=== PATIENT | male | born 1975 | race Caucasian/White ===

== ENCOUNTER 2021-04-27 08:32 | Emergency (ER) | payer OTHER, SELFPAY ==
[2021-04-27 09:18] VITALS: BP 157/103; PULSE 97; RESP 18; TEMP 36.7; O2SAT 98; BMI 36.6
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
[2021-04-27 10:28] LABS: Add Manual Diff / Slide Review NO; Basophils Absolute Auto 100 /uL (0-100); Basophils Percent Auto 0.9 % (0-2); Eosinophils Absolute Auto 200 /uL (0-450); Eosinophils Percent Auto 2.2 % (2-4); Hematocrit 41.2 % (41-53); Hemoglobin 14.1 g/dL (13.5-17.5); Lymphocytes Absolute Auto 2800 /uL (1100-4500); Lymphocytes Percent Auto 26.8 % (25-40); Mean Corpuscular HGB Conc 34.3 % (30-36); Mean Corpuscular Hemoglobin 29.8 PG (26-34); Mean Corpuscular Volume 87.1 fL (80-100); Monocytes Absolute Auto 1200 /uL (0-900); Monocytes Percent Auto 11.6 % (3-14); Neutrophils Absolute Auto 6100 /uL (1500-7000); Neutrophils Percent Auto 58.5 % (50-75); Platelet Count 323 X10^3/uL (150-400); Red Blood Cell Count 4.73 X10^6/uL (4.5-5.9); Red Cell Distribution Width 14.3 % (11.6-14.8); White Blood Cell Count 10.4 X10^3/uL (4.5-11.0)
[2021-04-27 10:31] LABS: INR 0.9 (0.9-1.3)
[2021-04-27 10:33] LABS: PTT Partial Thromboplastin Tim 31 SECONDS (26.4-36.2)
[2021-04-27 10:35] LABS: Alanine Aminotransferase 26 IU/L (<50); Albumin 4.4 g/dL (3.5-5.0); Albumin Globulin Ratio 1.4 (1.0-2.8); Alkaline Phosphatase 73 U/L (38-126); Aspartate Aminotransferase 25 IU/L (17-59); BUN Creatinine Ratio 18.3 (6-22); Bilirubin Total 0.3 mg/dL (0.2-1.3); Blood Urea Nitrogen 15 mg/dL (9-20); Calcium 9.4 mg/dL (8.4-10.2); Carbon Dioxide 29 mmol/L (22-32); Chloride 104 mmol/L (98-107); Estimated Glomerular Filt Rate > 60.0 mL/min (>60); Ethanol (ETOH) < 10 mg/dL; Globulin 3.1 g/dL (1.7-4.1); Glucose 127 mg/dL (70-100); HEMOLYSIS < 15 (0-50); Lipase 355 U/L (23-300); Potassium 4.1 mmol/L (3.4-5.1); Sodium 139 mmol/L (137-145); Total Protein 7.5 g/dL (6.3-8.2)
[2021-04-27 10:38] LABS: COVID19 -Nasal RAPID POSITIVE (Negative)
[2021-04-27] MEDS: ONDANSETRON 4 MG/2 ML INJ IV (11:19)
[2021-04-27] MEDS: NICOTINE 21 MG PATCH TOP (11:29)
[2021-04-27] MEDS: fentaNYL 100 MCG/2 ML INJ 50 MCG IV (11:41)
== END 2021-04-27 11:34 | disposition short-term general hospital (02) ==
PROVIDERS: Emergency Provider Emergency Medicine
DX: S02.0XXA Fracture of vault of skull, initial encounter for closed fracture (principal); S06.4X9A Epidural hemorrhage with loss of consciousness of unspecified duration, initial encounter; F17.200 Nicotine dependence, unspecified, uncomplicated; Y08.89XA Assault by other specified means, initial encounter; Y92.009 Unspecified place in unspecified non-institutional (private) residence as the place of occurrence of the external cause; Z20.822 Contact with and (suspected) exposure to COVID-19
CPT/HCPCS: 36415; 70450; 80053; 80320; 83690; 85025; 85610; 85730; 86850; 86900; 86901; 87635; 93005; 93010; 96374; 96375; 99285; 99291; C9803; J2405; J3010

== ENCOUNTER 2021-12-21 22:42 | Emergency (ER) | payer OTHER, SELFPAY ==
[2021-12-21 22:49] VITALS: BP 190/98; PULSE 79; RESP 20; TEMP 36.9; O2SAT 100
--- NOTE | 2021-12-21 22:55 | DI.RAD.S_ITS ---
PROCEDURE: XR HAND LT MIN 3V INDICATIONS: crush injury TECHNIQUE: 3 views of the hand(s) acquired. COMPARISON: None. FINDINGS: Bones: There is a mildly comminuted fracture involving the 5th metacarpal neck. A minimally displaced fracture is also demonstrated within the 4th metacarpal neck. No dislocations. Carpal bones are normally aligned. No suspicious bony lesions. Soft tissues: No suspicious soft tissue calcifications. IMPRESSION: 1. Mildly comminuted fracture of the distal 5th metacarpal as well as minimal displaced fracture of the distal 4th metacarpal. Dictated by: Yves Hayes M.D. on 12/22/2021 at 0:04 Approved by: Yves Hayes M.D. on 12/22/2021 at 0:06
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
--- NOTE | 2021-12-22 05:11 | PC.NURSE ---
Patients left hand splinted, he tolerated it well. Strongly encouraged elevation and ice at home
[2021-12-22 05:12] VITALS: BP 142/74; PULSE 75; RESP 16; O2SAT 98
== END 2021-12-22 05:32 | disposition home or self-care (01) ==
PROVIDERS: Emergency Provider Emergency Medicine
DX: S62.305A Unspecified fracture of fourth metacarpal bone, left hand, initial encounter for closed fracture (principal); S62.307A Unspecified fracture of fifth metacarpal bone, left hand, initial encounter for closed fracture; W23.0XXA Caught, crushed, jammed, or pinched between moving objects, initial encounter
CPT/HCPCS: 73130; 99281; 99283

== ENCOUNTER 2023-01-29 02:11 | Observation (INO) | payer OTHER, MEDICAID, SELFPAY ==
[2023-01-29] VITALS (18 sets, daily range): BP systolic 132–164; BP diastolic 78–113; PULSE 103–116; RESP 12–25; TEMP 36.3–36.8; O2SAT 83–99; BMI 38.5
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
--- NOTE | 2023-01-29 02:30 | DI.RAD.S_ITS ---
PROCEDURE: XR CHEST 1V INDICATIONS: Dyspnea TECHNIQUE: One view of the chest was acquired. COMPARISON: None. FINDINGS: Surgical changes and devices: None. Lungs and pleura: Interstitial opacities throughout the bilateral lungs with prominent vascularity. No pleural effusions or pneumothorax. Mediastinum: Mediastinal contours appear normal. Heart size is enlarged. Bones and chest wall: No suspicious bony lesions. Overlying soft tissues appear unremarkable. Plate screw fixation left clavicle. IMPRESSION: Constellation of findings consistent with pulmonary edema, likely cardiac in origin. Interpretation is consistent with overnight read. Dictated by: Rajan Fernandez M.D. on 01/29/2023 at 7:57 Approved by: Rajan Fernandez M.D. on 01/29/2023 at 7:59
[2023-01-29 02:50] LABS: Add Manual Diff / Slide Review NO; Basophils Absolute Auto 100 /uL (0-100); Basophils Percent Auto 1.1 % (0-2); Eosinophils Absolute Auto 200 /uL (0-450); Eosinophils Percent Auto 2.1 % (2-4); Hematocrit 36.5 % (41-53); Hemoglobin 11.9 g/dL (13.5-17.5); Lymphocytes Absolute Auto 2600 /uL (1100-4500); Lymphocytes Percent Auto 22.1 % (25-40); Mean Corpuscular HGB Conc 32.5 % (30-36); Mean Corpuscular Hemoglobin 27.9 PG (26-34); Mean Corpuscular Volume 85.7 fL (80-100); Monocytes Absolute Auto 1300 /uL (0-900); Monocytes Percent Auto 10.9 % (3-14); Neutrophils Absolute Auto 7500 /uL (1500-7000); Neutrophils Percent Auto 63.8 % (50-75); Platelet Count 466 X10^3/uL (150-400); Red Blood Cell Count 4.26 X10^6/uL (4.5-5.9); Red Cell Distribution Width 15.3 % (11.6-14.8); White Blood Cell Count 11.7 X10^3/uL (4.5-11.0)
[2023-01-29 03:02] LABS: Alanine Aminotransferase 28 IU/L (<50); Albumin 3.5 g/dL (3.5-5.0); Albumin Globulin Ratio 1.3 (1.0-2.8); Alkaline Phosphatase 107 U/L (38-126); Aspartate Aminotransferase 35 IU/L (17-59); BUN Creatinine Ratio 18.9 (6-22); Bilirubin Total 0.6 mg/dL (0.2-1.3); Blood Urea Nitrogen 18 mg/dL (9-20); Calcium 8.7 mg/dL (8.4-10.2); Carbon Dioxide 26 mmol/L (22-32); Chloride 104 mmol/L (98-107); Creatine Kinase 234 U/L (55-170); Estimated Glomerular Filt Rate > 60 mL/min (>60); Ethanol (ETOH) < 10 mg/dL; Globulin 2.7 g/dL (1.7-4.1); Glucose 109 mg/dL (70-100); HEMOLYSIS < 15 (0-50); Lactate (Lactic Acid) 1.1 mmol/L (0.7-2.1); Lipase 89 U/L (23-300); Magnesium 1.8 mg/dL (1.6-2.3); Sodium 137 mmol/L (137-145); Total Protein 6.2 g/dL (6.3-8.2)
[2023-01-29 03:04] LABS: D Dimer 828 ng/ml (<500)
[2023-01-29 03:10] LABS: NT-proBNP (BNP-Adult 18+) 4140 pg/mL (<125)
[2023-01-29 03:13] LABS: Troponin I 0.035 ng/mL (0.01-0.034)
[2023-01-29 03:18] LABS: Procalcitonin 0.06 ng/mL (<0.5)
--- NOTE | 2023-01-29 03:32 | DI.CT.S_ITS ---
PROCEDURE: CT ANGIO CHEST PE PROTOCOL INDICATIONS: dyspnea, tachycardia, elvated d dimer TECHNIQUE: After the administration of intravenous contrast, 2 mm thick sections acquired from the pulmonary apices to the posterior costophrenic angles. 3-dimensional maximum intensity projection (MIP) coronal and sagittal reformats were then acquired through the thorax. For radiation dose reduction, the following was used: automated exposure control, adjustment of mA and/or kV according to patient size. COMPARISON: None. FINDINGS: Image quality: Diagnostic. Pulmonary arteries: Pulmonary arteries are normal in size, and demonstrate no intraluminal filling defects to suggest central pulmonary embolism. Lungs and pleura: Patchy bilateral ground-glass opacities throughout the bilateral lungs. Interstitial thickening. Small right pleural effusion. No pneumothorax. Central and peripheral airways are patent. Mediastinum: Heart size is enlarged, without pericardial effusion. Right hilar and central lymphadenopathy. Prevascular space lymphadenopathy. Thoracic aorta is normal in caliber and enhancement. Esophagus is normal in caliber, without hiatal hernia. Bones and chest wall: No suspicious bony lesions. Ribs and thoracic spine appear intact throughout. No axillary or supraclavicular adenopathy. No thyroid nodules which require sonographic follow up, per consensus guidelines. Abdomen: Visualized upper abdominal solid organs appear normal in the early arterial phase of enhancement. IMPRESSION: 1. No pulmonary embolus. 2. Cardiomegaly with constellation of findings suggestive of heart failure and pulmonary edema. 3. Diffuse ground-glass opacities may be sequela of pulmonary edema however cannot exclude atypical infection given the lymphadenopathy Findings are congruent with overnight interpretation. Dictated by: Rajan Fernandez M.D. on 01/29/2023 at 7:59 Approved by: Rajan Fernandez M.D. on 01/29/2023 at 8:05
[2023-01-29] MEDS: FUROSEMIDE 40 MG/4 ML VIAL IV (03:41)
[2023-01-29 04:14] LABS: Thyroid Stimulating Hormone 4.97 uIU/mL (0.47-4.68)
[2023-01-29 04:28] LABS: Ur Creatinine Normal (Normal); Ur Specific Gravity Normal (Normal); Urine Amphetamines Positive (Negative); Urine Barbiturates Negative (Negative); Urine Benzodiazepines Negative (Negative); Urine MDMA Negative (Negative); Urine Methadone Positive (Negative); Urine Methamphetamines Negative (Negative); Urine Oxycodone Positive (Negative); Urine Phencyclidine Negative (Negative); Urine Tetrahydrocannabinol Positive (Negative); Urine Tricyclic Antidepressant Negative (Negative); Urine pH Normal (Normal)
[2023-01-29 04:29] LABS: UR Morphine/Opiate cutoff 300 Negative (Negative); Urine Cocaine Negative (Negative)
[2023-01-29 04:30] LABS: Bacteria Urine None Seen; Culture Indicated Urine Cult Not Indicated; RBC Urine None Seen (0-5/HPF); Squamous Epithelial Cell Urine None Seen (0-5/HPF); WBC Urine None Seen (0-5/HPF)
[2023-01-29 05:13] LABS: Troponin I 0.031 ng/mL (0.01-0.034)
[2023-01-29 05:41] LABS: Influenza A - CEPHEID Flu A NEGATIVE (NEGATIVE); Influenza B - CEPHEID Flu B NEGATIVE (NEGATIVE); Respiratory Syncytial Virus Negative (Negative)
[2023-01-29 05:42] LABS: COVID-19 CEPHEID 4-PLEX PCR Negative (Negative)
--- NOTE | 2023-01-29 05:55 | DI.ECHO.S_ITS ---
[facility] +---------+ : : [address] : : : : [id number] : : : : Phone: [phone]+ Echocardiogram Report + + :Name: KUN NARVAEZ V Study Date: 01/29/2023 Height: 74 in : :[facility] ReadingLocation: Weight: 300 lb : : Gender: Male BSA: 2.6 m2 : :: 1975 Age: 47 yrs BP: 134/83 mmHg: :Reason For Study: Congestive Heart Failure : : Performed By: Cris Singleton : + + Interpretation Summary Echo ordered by Camden Cox MD. The left ventricle is moderate-severely dilated. The ejection fraction is estimated to be 10-15%. Grade III diastolic dysfunction. Both atria are severely dilated. There is moderate to severe mitral regurgitation. There is moderate tricuspid regurgitation. The right ventricular systolic pressure is estimated to be at least 54 mmHg based on an estimated right atrial pressure of 15 mm Hg. There is a trivial pericardial effusion noted. Procedure: A two-dimensional transthoracic echocardiogram with color flow and Doppler was performed. The study quality was technically adequate. There is no prior echocardiogram noted for this patient. The heart rate ranged between 103-113 bpm during the study. Left Ventricle: The left ventricle is moderate-severely dilated. Left ventricular wall thickness is normal. The ejection fraction is estimated to be 10-15%. Diastolic parameters suggest a restrictive filling pattern consistent with probable significantly elevated filling pressures. Right Ventricle: The right ventricle is moderately dilated. Right ventricular systolic function is at the lower limits of normal. Atria: Both atria are severely dilated. There is no Doppler evidence for an interatrial shunt. Mitral Valve: The mitral valve leaflets appear mildly thickened, but open well. There is moderate to severe mitral regurgitation. The mitral regurgitant jet is eccentrically directed. Aortic Valve: The aortic valve is trileaflet. The aortic valve opens well. There is no aortic valve stenosis. No aortic regurgitation is present. Tricuspid Valve: The tricuspid valve leaflets are thin and pliable. There is moderate tricuspid regurgitation. The right ventricular systolic pressure is estimated to be at least 54 mmHg based on an estimated right atrial pressure of 15 mm Hg. Pulmonic Valve: The pulmonic valve leaflets are thin and pliable; valve motion is normal. There is trace pulmonic regurgitation. Great Vessels: The aortic root is normal size. The dimensions of the ascending aorta are normal. The IVC is dilated (diameter is greater than 2.1 cm) and it collapses less than 50% with a sniff. This suggests a high right atrial pressure of 15 mm Hg. Pericardium/ Pleura There is a trivial pericardial effusion noted. There is no pleural effusion. MMode/2D Measurements & Calculations LVIDd: 6.0 cm LVOT diam: 2.3 cm LVIDs: 5.5 cm Ao root diam: 3.5 cm FS: 8.5 % asc Aorta Diam: 3.5 cm EPSS: 2.3 cm IVSd: 0.99 cm LVPWd: 0.98 cm LV flor. diameter/BSA (cm/m^2): 2.3 LV sys. diameter/BSA (cm/m^2): 2.1 LA A2 area: 35.9 cm2 RA long axis: 6.8 cm LA A4 area: 40.7 cm2 RA area: 33.5 cm2 LA length (vol): 7.1 cm RA vol: 140.4 ml LA vol: 173.6 ml RA : 54.4 ml/m2 LA vol index: 67.3 ml/m2 IVC diam: 3.3 cm RVD1 (basal): 5.2 cm TAPSE: 1.8 cm Doppler Measurements & Calculations Ao V2 max: 121.3 cm/sec LVOT Max Alessandro: 90.7 cm/sec Ao V2 mean: 91.1 cm/sec LV V1 max P.3 mmHg Ao max P.9 mmHg LV V1 VTI: 13.5 cm Ao mean P.6 mmHg MARITA(I,D): 3.4 cm2 Ao V2 VTI: 16.7 cm MARITA(V,D): 3.1 cm2 sev ratio: 0.81 MARITA indexed to BSA (cm^2/m^2): 1.3 MV E max alessandro: 168.7 cm/sec TR max alessandro: 314.2 cm/sec Med Peak E' Alessandro: 6.2 cm/sec TR max P.5 mmHg E/E' med: 27.4 PA V2 max: 72.7 cm/sec Lat Peak E' Alessandro: 3.6 cm/sec PA V2 mean: 50.3 cm/sec E/E' lat: 46.4 PA mean P.1 mmHg E/e' average: 36.9 PA pr(Accel): 43.0 mmHg MV dec time: 0.10 sec MR ERO: 0.40 cm2 PISA: 5.3 cm2 SV(LVOT): 56.2 ml MR flow rate: 185.7 cm3/sec MR PISA radius: 0.92 cm Reading Physician:10:46 AM
[2023-01-29 06:33] LABS: Add Manual Diff / Slide Review NO; Basophils Absolute Auto 100 /uL (0-100); Basophils Percent Auto 1.3 % (0-2); Eosinophils Absolute Auto 300 /uL (0-450); Eosinophils Percent Auto 2.8 % (2-4); Hematocrit 36.3 % (41-53); Lymphocytes Absolute Auto 2100 /uL (1100-4500); Lymphocytes Percent Auto 19.9 % (25-40); Mean Corpuscular HGB Conc 33.2 % (30-36); Mean Corpuscular Hemoglobin 28.2 PG (26-34); Mean Corpuscular Volume 85.1 fL (80-100); Monocytes Absolute Auto 1300 /uL (0-900); Monocytes Percent Auto 12.3 % (3-14); Neutrophils Absolute Auto 6800 /uL (1500-7000); Neutrophils Percent Auto 63.7 % (50-75); Platelet Count 450 X10^3/uL (150-400); Red Blood Cell Count 4.26 X10^6/uL (4.5-5.9); Red Cell Distribution Width 14.8 % (11.6-14.8); White Blood Cell Count 10.6 X10^3/uL (4.5-11.0)
--- NOTE | 2023-01-29 06:39 | PC.NURSE ---
Patient's sister (Radha) called and updated that patient is admitted to hospital and moved to Acute care Unit, Room 216. Radha has no further questions at this time and states she will come later today to check on patient or call hospital to get update. Radha can be reached at #[phone].
[2023-01-29 06:45] LABS: BUN Creatinine Ratio 18.8 (6-22); Blood Urea Nitrogen 18 mg/dL (9-20); Calcium 8.9 mg/dL (8.4-10.2); Carbon Dioxide 30 mmol/L (22-32); Chloride 101 mmol/L (98-107); Estimated Glomerular Filt Rate > 60 mL/min (>60); Glucose 105 mg/dL (70-100); HEMOLYSIS < 15 (0-50); Potassium 3.8 mmol/L (3.4-5.1); Sodium 137 mmol/L (137-145)
[2023-01-29 06:54] LABS: NT-proBNP (BNP-Adult 18+) 3830 pg/mL (<125)
[2023-01-29 07:07] LABS: Cholesterol 164 mg/dL (140-199); HDL Cholesterol 32 mg/dL (40-60); LDL Cholesterol Calculated 110 mg/dL (<100); Triglycerides 108 mg/dL (35-150)
--- NOTE | 2023-01-29 07:07 | PM.HP.1 ---
History of Present Illness History of Present Illness Date Patient Seen: 01/29/23 Time Patient Seen: 07:17 Chief complaint: swelling up both legs/high bp/sob Narrative: The pt is a 47 yo who rarely goes to see a medical provider who reports he has VIN but never has been fitted for a CPAP and has had edema in his legs for the past several years but never has sought medical attention either. He comes to the ER tonight due to worsening SOB and dypnea that has been steadily worsening over the past 2 weeks. He denies any CP, chest pressure, recent travel or immobility. 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 [facility] Social History Smoking Status: Current every day smoker Meds Home Medications and Allergies Home Medications Medication Instructions Recorded Confirmed Type hydrocodone 5 mg-acetaminophen 325 1 tab PO Q6H PRN pain #8 tabs 12/22/21 Rx mg tablet Allergies Allergy/AdvReac Type Severity Reaction Status Date / Time No Known Drug Allergies Allergy Verified 04/27/21 09:21 Exam Vital Signs (past 8 hours): - 01/29/23 02:13 01/29/23 02:54 01/29/23 02:56 Temperature 98.1 F Pulse Rate 110 H Respiratory Rate 25 H 14 16 Blood Pressure 164/113 H Pulse Oximetry 91 83 L 96 Oxygen Delivery Method Room Air Room Air Nasal Cannula Oxygen Flow Rate 3 01/29/23 03:48 01/29/23 04:54 01/29/23 04:55 Temperature Pulse Rate 108 H Respiratory Rate 16 18 24 Blood Pressure Pulse Oximetry 99 93 99 Oxygen Delivery Method Nasal Cannula Nasal Cannula Oxygen Flow Rate 2 3 01/29/23 05:00 01/29/23 05:00 01/29/23 05:30 Temperature Pulse Rate 107 H Respiratory Rate 13 Blood Pressure 143/94 H 145/89 H Pulse Oximetry 99 Oxygen Delivery Method Oxygen Flow Rate 01/29/23 05:30 01/29/23 06:00 01/29/23 06:00 Temperature Pulse Rate 103 H 106 H Respiratory Rate 12 14 Blood Pressure 144/92 H Pulse Oximetry 96 99 Oxygen Delivery Method Nasal Cannula Nasal Cannula Oxygen Flow Rate 3 3 01/29/23 06:35 Temperature 97.5 F L Pulse Rate 104 H Respiratory Rate 14 Blood Pressure 134/83 Pulse Oximetry 98 Oxygen Delivery Method Oxygen Flow Rate 3 Oxygen Delivery Method Nasal Cannula Oxygen Flow Rate 3 Const General: cooperative and comfortable Resp Auscultation: clear to auscultation bilaterally Cardio Rate: regular rate Rhythm: regular rhythm GI Inspection: normal to inspection and obesity Objective Labs 01/29/23 06:25 01/29/23 06:25 Labs: Laboratory Results - last 24 hr 01/29/23 01/29/23 01/29/23 02:30 04:05 04:29 WBC 11.7 H RBC 4.26 L Hgb 11.9 L Hct 36.5 L MCV 85.7 MCH 27.9 MCHC 32.5 RDW 15.3 H Plt Count 466 H Neut % (Auto) 63.8 Lymph % (Auto) 22.1 L [place] % (Auto) 10.9 Eos % (Auto) 2.1 Baso % (Auto) 1.1 Neut # (Auto) 7500 H Lymph # (Auto) 2600 [place] # (Auto) 1300 H Eos # (Auto) 200 Baso # (Auto) 100 D-Dimer 828 H Sodium 137 Potassium 4.0 Chloride 104 Carbon Dioxide 26 BUN 18 Creatinine 0.95 Estimated GFR > 60 BUN/Creatinine Ratio 18.9 Glucose 109 H Lactate 1.1 Calcium 8.7 Magnesium 1.8 Total Bilirubin 0.6 AST 35 ALT 28 Alkaline Phosphatase 107 Total Creatine Kinase 234 H Troponin I 0.035 H 0.031 NT-Pro-B Natriuret Pep 4140 H Total Protein 6.2 L Albumin 3.5 Globulin 2.7 Albumin/Globulin Ratio 1.3 Lipase 89 Procalcitonin 0.06 TSH 4.97 H Urine RBC None seen Urine WBC None seen Ur Squamous Epith Cells None seen Urine Bacteria None seen Ur Culture Indicated? Cult not indicated U Opiates 300ng/mL cut Negative Ur Oxycodone Screen Positive H Urine Methadone Screen Positive H Ur Barbiturates Screen Negative U Tricyclic Antidepress Negative Ur Phencyclidine Scrn Negative Ur Amphetamines Screen Positive H U Methamphetamines Scrn Negative Ur MDMA Scrn (Ecstasy) Negative U Benzodiazepines Scrn Negative Urine Cocaine Screen Negative U Marijuana (THC) Screen Positive H Ethyl Alcohol < 10 SARS-CoV-2 (PCR) Influenza A (RT-PCR) Influenza B (RT-PCR) RSV (PCR) 01/29/23 01/29/23 04:35 06:25 WBC 10.6 RBC 4.26 L Hgb 12.0 L Hct 36.3 L MCV 85.1 MCH 28.2 MCHC 33.2 RDW 14.8 Plt Count 450 H Neut % (Auto) 63.7 Lymph % (Auto) 19.9 L [place] % (Auto) 12.3 Eos % (Auto) 2.8 Baso % (Auto) 1.3 Neut # (Auto) 6800 Lymph # (Auto) 2100 [place] # (Auto) 1300 H Eos # (Auto) 300 Baso # (Auto) 100 D-Dimer Sodium 137 Potassium 3.8 Chloride 101 Carbon Dioxide 30 BUN 18 Creatinine 0.96 Estimated GFR > 60 BUN/Creatinine Ratio 18.8 Glucose 105 H Lactate Calcium 8.9 Magnesium Total Bilirubin AST ALT Alkaline Phosphatase Total Creatine Kinase Troponin I NT-Pro-B Natriuret Pep 3830 H Total Protein Albumin Globulin Albumin/Globulin Ratio Lipase Procalcitonin TSH Urine RBC Urine WBC Ur Squamous Epith Cells Urine Bacteria Ur Culture Indicated? U Opiates 300ng/mL cut Ur Oxycodone Screen Urine Methadone Screen Ur Barbiturates Screen U Tricyclic Antidepress Ur Phencyclidine Scrn Ur Amphetamines Screen U Methamphetamines Scrn Ur MDMA Scrn (Ecstasy) U Benzodiazepines Scrn Urine Cocaine Screen U Marijuana (THC) Screen Ethyl Alcohol SARS-CoV-2 (PCR) Negative Influenza A (RT-PCR) Flu a negative Influenza B (RT-PCR) Flu b negative RSV (PCR) Negative Assessment & Plan Assessment and plan (1) Acute CHF (congestive heart failure): Qualifiers: Heart failure type: unspecified Qualified Code(s): I50.9 - Heart failure, unspecified Status: Acute (2) Apnea, sleep: Qualifiers: Sleep apnea type: unspecified type Qualified Code(s): G47.30 - Sleep apnea, unspecified Status: Acute (3) Anemia, mild: Status: Acute Plan I discussed the pt's case and presenting symptoms and labs with the ER provider and agree with admission. I have reviewed the CT scan and labs, BNP is elevated and clinically he appears fluid overload. Will start the pt on lasix 40 mg iV q8, spironolactone, monitor I/O's closely, daily weights, on 2 gm Na diet with fluid restriction, on cardiac telemetry, troponin minimally elevated, repeat troponin at non today, asymptomatic.
--- NOTE | 2023-01-29 07:35 | P.HP_ITS ---
History of Present Illness History of Present Illness Date Patient Seen: 01/29/23 Time Patient Seen: 07:17 Chief complaint: swelling up both legs/high bp/sob Narrative: The pt is a 47 yo who rarely goes to see a medical provider who reports he has VIN but never has been fitted for a CPAP and has had edema in his legs for the past several years but never has sought medical attention either. He comes to the ER tonight due to worsening SOB and dypnea that has been steadily worsening over the past 2 weeks. He denies any CP, chest pressure, recent travel or immobility. He states he works out in the [employer] but wont say what he really does for a living. [facility] Social History Smoking Status: Current every day smoker alcohol intake: never Meds Home Medications and Allergies Allergies Allergy/AdvReac Type Severity Reaction Status Date / Time No Known Drug Allergies Allergy Verified 04/27/21 09:21 Review of Systems Review of Systems Narrative: All other systems reviewed with the patient and are negative unless otherwise stated. Exam Vital Signs (past 8 hours): - 01/29/23 02:13 01/29/23 02:54 01/29/23 02:56 Temperature 98.1 F Pulse Rate 110 H Respiratory Rate 25 H 14 16 Blood Pressure 164/113 H Pulse Oximetry 91 83 L 96 Oxygen Delivery Method Room Air Room Air Nasal Cannula Oxygen Flow Rate 3 01/29/23 03:48 01/29/23 04:54 01/29/23 04:55 Temperature Pulse Rate 108 H Respiratory Rate 16 18 24 Blood Pressure Pulse Oximetry 99 93 99 Oxygen Delivery Method Nasal Cannula Nasal Cannula Oxygen Flow Rate 2 3 01/29/23 05:00 01/29/23 05:00 01/29/23 05:30 Temperature Pulse Rate 107 H Respiratory Rate 13 Blood Pressure 143/94 H 145/89 H Pulse Oximetry 99 Oxygen Delivery Method Oxygen Flow Rate 01/29/23 05:30 01/29/23 06:00 01/29/23 06:00 Temperature Pulse Rate 103 H 106 H Respiratory Rate 12 14 Blood Pressure 144/92 H Pulse Oximetry 96 99 Oxygen Delivery Method Nasal Cannula Nasal Cannula Oxygen Flow Rate 3 3 01/29/23 06:35 Temperature 97.5 F L Pulse Rate 104 H Respiratory Rate 14 Blood Pressure 134/83 Pulse Oximetry 98 Oxygen Delivery Method Oxygen Flow Rate 3 Oxygen Delivery Method Nasal Cannula Oxygen Flow Rate 3 Const General: cooperative and comfortable Resp Auscultation: clear to auscultation bilaterally Cardio Rate: regular rate Rhythm: regular rhythm GI Inspection: normal to inspection and obesity Objective Labs 01/29/23 06:25 01/29/23 06:25 Labs: Laboratory Results - last 24 hr 01/29/23 01/29/23 01/29/23 02:30 04:05 04:29 WBC 11.7 H RBC 4.26 L Hgb 11.9 L Hct 36.5 L MCV 85.7 MCH 27.9 MCHC 32.5 RDW 15.3 H Plt Count 466 H Neut % (Auto) 63.8 Lymph % (Auto) 22.1 L [place] % (Auto) 10.9 Eos % (Auto) 2.1 Baso % (Auto) 1.1 Neut # (Auto) 7500 H Lymph # (Auto) 2600 [place] # (Auto) 1300 H Eos # (Auto) 200 Baso # (Auto) 100 D-Dimer 828 H Sodium 137 Potassium 4.0 Chloride 104 Carbon Dioxide 26 BUN 18 Creatinine 0.95 Estimated GFR > 60 BUN/Creatinine Ratio 18.9 Glucose 109 H Lactate 1.1 Calcium 8.7 Magnesium 1.8 Total Bilirubin 0.6 AST 35 ALT 28 Alkaline Phosphatase 107 Total Creatine Kinase 234 H Troponin I 0.035 H 0.031 NT-Pro-B Natriuret Pep 4140 H Total Protein 6.2 L Albumin 3.5 Globulin 2.7 Albumin/Globulin Ratio 1.3 Triglycerides Cholesterol LDL Cholesterol, Calc HDL Cholesterol Lipase 89 Procalcitonin 0.06 TSH 4.97 H Urine RBC None seen Urine WBC None seen Ur Squamous Epith Cells None seen Urine Bacteria None seen Ur Culture Indicated? Cult not indicated U Opiates 300ng/mL cut Negative Ur Oxycodone Screen Positive H Urine Methadone Screen Positive H Ur Barbiturates Screen Negative U Tricyclic Antidepress Negative Ur Phencyclidine Scrn Negative Ur Amphetamines Screen Positive H U Methamphetamines Scrn Negative Ur MDMA Scrn (Ecstasy) Negative U Benzodiazepines Scrn Negative Urine Cocaine Screen Negative U Marijuana (THC) Screen Positive H Ethyl Alcohol < 10 SARS-CoV-2 (PCR) Influenza A (RT-PCR) Influenza B (RT-PCR) RSV (PCR) 11/19/23 11/19/23 04:35 06:25 WBC 10.6 RBC 4.26 L Hgb 12.0 L Hct 36.3 L MCV 85.1 MCH 28.2 MCHC 33.2 RDW 14.8 Plt Count 450 H Neut % (Auto) 63.7 Lymph % (Auto) 19.9 L [place] % (Auto) 12.3 Eos % (Auto) 2.8 Baso % (Auto) 1.3 Neut # (Auto) 6800 Lymph # (Auto) 2100 [place] # (Auto) 1300 H Eos # (Auto) 300 Baso # (Auto) 100 D-Dimer Sodium 137 Potassium 3.8 Chloride 101 Carbon Dioxide 30 BUN 18 Creatinine 0.96 Estimated GFR > 60 BUN/Creatinine Ratio 18.8 Glucose 105 H Lactate Calcium 8.9 Magnesium Total Bilirubin AST ALT Alkaline Phosphatase Total Creatine Kinase Troponin I NT-Pro-B Natriuret Pep 3830 H Total Protein Albumin Globulin Albumin/Globulin Ratio Triglycerides 108 Cholesterol 164 LDL Cholesterol, Calc 110 H HDL Cholesterol 32 L Lipase Procalcitonin TSH Urine RBC Urine WBC Ur Squamous Epith Cells Urine Bacteria Ur Culture Indicated? U Opiates 300ng/mL cut Ur Oxycodone Screen Urine Methadone Screen Ur Barbiturates Screen U Tricyclic Antidepress Ur Phencyclidine Scrn Ur Amphetamines Screen U Methamphetamines Scrn Ur MDMA Scrn (Ecstasy) U Benzodiazepines Scrn Urine Cocaine Screen U Marijuana (THC) Screen Ethyl Alcohol SARS-CoV-2 (PCR) Negative Influenza A (RT-PCR) Flu a negative Influenza B (RT-PCR) Flu b negative RSV (PCR) Negative Assessment & Plan Assessment and plan (1) Acute CHF (congestive heart failure): Qualifiers: Heart failure type: unspecified Qualified Code(s): I50.9 - Heart failure, unspecified Status: Acute Plan: echo with EF 10-15%, mod-severely dilated LV, grade III diastolic dysfunction, mod-severe MR, mod TR, RVSP 54 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
[2023-01-29] MEDS: SPIRONOLACTONE 25 MG TABLET PO (09:20)
[2023-01-29] MEDS: POTASSIUM CHLORIDE 20 MEQ TAB PO ×2 (09:20→17:11)
[2023-01-29] MEDS: ENOXAPARIN 40 MG/0.4 ML SYRINGE SUBCUT (09:21)
[2023-01-29] MEDS: NICOTINE 14 PATCH 14 MG TOP (09:22)
--- NOTE | 2023-01-29 11:56 | CM.DANOTE ---
DCP: Case received, EMR reviewed and met with patient. Introduced self and role briefly. Completed DCP assessment based upon information currently available. Patient is a 47 year old male who admitted early this morning to the care of the hospitalist team. PCP: No current provider Payer: currently uninsured, [employer] Application given to patient. Patent came to the hospital via private vehicle secondary to having dyspnea. Patient had noted some tachycardia upon admission. Patient noted to be positive for Methamphetamines, denies recreational drugs, stated, he takes Sudafed. Patient holds diagnosis of Acute CHF. Attempted to meet with patient. He was sitting up in bed, started to fall asleep when asking questions, he is from [place], unable to find out if he lives in this area, no provider is listed, notes indicate that patient rarely sees a provider. It is also noted that patient was given a [employer] application, unclear if he qualifies for [employer], would have to send email to change group. Patient did state, he wants to leave. P: DCP to continue to follow for needs. Plan will most likely be home when stable. Arabella Bojorquez RN/Furrier Shop Supervisor Discharge Planning/Care Management CM Discharge Assessment Start: 01/29/23 11:43 Freq: Status: Active Protocol: Document 01/29/23 11:43 (Rec: 01/29/23 11:48 [id number]) Discharge Planning Assessment Assigned Extermination Supervisor Arabella Bojorquez RN/Furrier Shop Supervisor Advance Directives? No History Provided By Patient,Medical Record Prior Living Arrangements House Type of transporation used prior to Drives own vehicle admit Independent with ADL's Yes Is patient alert and oriented? Yes Caregiver for Another No Barriers to Discharge Yes Comment Has no provider, or insurance Discharge Plan Home Transportation Arrangement Self Referrals Initiated None needed Whiteboard Updated in Patient Room with Yes name and ext. # of Extermination Supervisor Review Status In Process Next Review Type Continued Stay Review
--- NOTE | 2023-01-29 12:22 | PC.NURSE ---
Addendum entered by Palmira Angel R.N. 01/29/23 16:05: Patient is tolerating his continuous lasix drip. He is resting comfortably and denies pain. Addendum entered by Palmira Angel R.N. 01/29/23 14:15: Patient put on 2l of oxygen as he desats when he falls asleep down into the mid 80s. When he is awake and conversing, patients sats are 97% Addendum entered by Palmira Angel R.N. 01/29/23 12:54: talked to patient and he is willing to stay for his iv lasix, patient is in the shower now. This will then get started. Original Note: Notes: Went to see patient and get ready to start his iv lasix and he states that he does not want anything iv medication and he wants to go home. Explained to patient that we cannot force him to stay here but also that he is sick and his heart is not doing well. is in talking to patient now. He took his morning medications without any problem. He told this RN that he was just mad at everthing right now. He has been pleasant with care.
[2023-01-29] MEDS: LOSARTAN 25 MG TABLET PO (12:33)
[2023-01-29] MEDS: FUROSEMIDE 100 MG in SODIUM CHLORIDE 0.9% 50 ML 6 MG IV (13:30)
[2023-01-29 16:17] LABS: BUN Creatinine Ratio 21.7 (6-22); Blood Urea Nitrogen 18 mg/dL (9-20); Calcium 8.9 mg/dL (8.4-10.2); Carbon Dioxide 30 mmol/L (22-32); Chloride 104 mmol/L (98-107); Estimated Glomerular Filt Rate > 60 mL/min (>60); Glucose 104 mg/dL (70-100); HEMOLYSIS < 15 (0-50); Potassium 3.9 mmol/L (3.4-5.1); Sodium 138 mmol/L (137-145)
[2023-01-29 16:29] LABS: Troponin I 0.027 ng/mL (0.01-0.034)
[2023-01-29] MEDS: SENNOSIDES 8.6 MG TABLET 17.2 MG PO (20:57)
[2023-01-30] VITALS (11 sets, daily range): BP systolic 103–134; BP diastolic 56–89; PULSE 81–107; RESP 17–18; TEMP 36.6–36.9; O2SAT 91–98
[2023-01-30] MEDS: HYDROCODONE/ACET 5/325 TABLET 1 TAB PO ×3 (00:19→20:26)
[2023-01-30] MEDS: ACETAMINOPHEN 325 MG TABLET 650 MG PO ×2 (00:19→12:08)
[2023-01-30 05:32] LABS: Add Manual Diff / Slide Review NO; Basophils Absolute Auto 0 /uL (0-100); Basophils Percent Auto 0.4 % (0-2); Eosinophils Absolute Auto 300 /uL (0-450); Eosinophils Percent Auto 2.7 % (2-4); Hematocrit 38.6 % (41-53); Hemoglobin 12.5 g/dL (13.5-17.5); Lymphocytes Absolute Auto 2000 /uL (1100-4500); Mean Corpuscular HGB Conc 32.3 % (30-36); Mean Corpuscular Hemoglobin 27.5 PG (26-34); Mean Corpuscular Volume 85.3 fL (80-100); Monocytes Absolute Auto 1200 /uL (0-900); Monocytes Percent Auto 11.4 % (3-14); Neutrophils Absolute Auto 7200 /uL (1500-7000); Neutrophils Percent Auto 66.5 % (50-75); Platelet Count 457 X10^3/uL (150-400); Red Blood Cell Count 4.53 X10^6/uL (4.5-5.9); Red Cell Distribution Width 14.8 % (11.6-14.8); White Blood Cell Count 10.8 X10^3/uL (4.5-11.0)
[2023-01-30 05:39] LABS: BUN Creatinine Ratio 19.3 (6-22); Blood Urea Nitrogen 17 mg/dL (9-20); Calcium 8.9 mg/dL (8.4-10.2); Carbon Dioxide 33 mmol/L (22-32); Chloride 99 mmol/L (98-107); Estimated Glomerular Filt Rate > 60 mL/min (>60); Glucose 99 mg/dL (70-100); HEMOLYSIS 18 (0-50); Potassium 3.9 mmol/L (3.4-5.1); Sodium 136 mmol/L (137-145)
[2023-01-30] MEDS: FUROSEMIDE 100 MG in SODIUM CHLORIDE 0.9% 50 ML 6 MG IV (06:25)
--- NOTE | 2023-01-30 07:22 | PM.PN.1 ---
Subjective Subjective Interval history: Diuresing well net neg -11L. [facility] rep to meet with him today. Exam Vital Signs (past 8 hours): - 01/30/23 00:31 01/30/23 01:00 01/30/23 05:00 Temperature 97.8 F Pulse Rate 98 H Respiratory Rate 17 Blood Pressure 108/66 Pulse Oximetry 94 94 98 Oxygen Delivery Method Room Air Room Air Oxygen Flow Rate 0 0 01/30/23 05:23 Temperature Pulse Rate 94 H Respiratory Rate 18 Blood Pressure 103/56 L Pulse Oximetry 98 Oxygen Delivery Method Oxygen Flow Rate Oxygen Delivery Method Room Air Oxygen Flow Rate 0 Const General: cooperative and comfortable Resp Auscultation: clear to auscultation bilaterally Cardio Rate: regular rate Rhythm: regular rhythm GI Inspection: normal to inspection and obesity Objective Labs 01/30/23 05:05 01/30/23 05:05 Labs: Laboratory Results - last 24 hr 01/29/23 01/30/23 15:59 05:05 WBC 10.8 RBC 4.53 Hgb 12.5 L Hct 38.6 L MCV 85.3 MCH 27.5 MCHC 32.3 RDW 14.8 Plt Count 457 H Neut % (Auto) 66.5 Lymph % (Auto) 19.0 L [place] % (Auto) 11.4 Eos % (Auto) 2.7 Baso % (Auto) 0.4 Neut # (Auto) 7200 H Lymph # (Auto) 2000 [place] # (Auto) 1200 H Eos # (Auto) 300 Baso # (Auto) 0 Sodium 138 136 L Potassium 3.9 3.9 Chloride 104 99 Carbon Dioxide 30 33 H BUN 18 17 Creatinine 0.83 0.88 Estimated GFR > 60 > 60 BUN/Creatinine Ratio 21.7 19.3 Glucose 104 H 99 Calcium 8.9 8.9 Troponin I 0.027 PFSH Social History Smoking Status: Current every day smoker alcohol intake: never Assessment & Plan Assessment and plan (1) Acute CHF (congestive heart failure): Qualifiers: Heart failure type: unspecified Qualified Code(s): I50.9 - Heart failure, unspecified Status: Acute Plan: dilated cardiomyopathy echo with EF 10-15%, mod-severely dilated LV, grade III diastolic dysfunction, mod-severe MR, mod TR, RVSP 54 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 Quality VTE Deep Vein Thrombosis/Pulmonary Embolism Present on Admission: No
[2023-01-30] MEDS: NICOTINE 14 PATCH 14 MG TOP (09:53)
[2023-01-30] MEDS: POTASSIUM CHLORIDE 20 MEQ TAB PO ×2 (09:53→17:44)
[2023-01-30] MEDS: ENOXAPARIN 40 MG/0.4 ML SYRINGE SUBCUT (09:53)
[2023-01-30] MEDS: SPIRONOLACTONE 25 MG TABLET PO (09:54)
[2023-01-30] MEDS: LOSARTAN 25 MG TABLET PO (09:54)
--- NOTE | 2023-01-30 11:43 | CM.DPC ---
Addendum entered by Arabella Bojorquez R.N. 01/30/23 16:13: Spoke to Pascual at [employer], asked for policy number of insurance when available. Informed him that this DC Finish Opener would fax over face sheet. Face sheet is updated. Pascual's fax number is: [phone], faxed it over to him. Addendum entered by Arabella Bojorquez R.N. 01/30/23 14:53: Found out from Yris in admissions that patient qualifies for [facility], effective 01/11, policy numbers pending. Called Pascual at [employer] [employer] company for [employer] [facility] and let him know that patient is now insured, and he can move forward with the Life Vest since he is now insured in this state. Addendum entered by Arabella Bojorquez R.N. 01/30/23 13:37: Pascual from [employer], called. His number is: [phone]. He is attempting to order a Life Vest, but needs to verify insurance. He asked it there were any records from when he was in [place], as far as his primary care provider. Let him know that there are no records as of yet. Did let him know that this DC Finish Opener is working with admission counselor to see if patient qualifies for [facility], but depends upon how long that patient has been in this state. Let him know that this DC Finish Opener will send another email to Yris, admission counselor, to see if she was able to speak to patient. If he did qualify for avandeo, then follow up cardiology can be set up. Let him know that DC Finish Opener can follow up with him as soon as more information is known. Addendum entered by Arabella Bojorquez R.N. 01/30/23 11:50: It is noted that patient has between 10-15% ejection fraction, [facility] rep is supposed to meet with patient today. Original Note: DCP Cont: Had sent an email to the change group yesterday to see if patient would qualify for [facility]. Did receive a note from Yris in admissions, indicating that she would first need to find out if patient is a [place] resident, since he is from [place]. Hospitalist indicated that patient will need to follow up with a antenna specialist, he is continuing with diuresis here. Patient resides on [address]. P: DCP to continue to follow. Plan will be home when stable, but will await hearing back from admissions regarding patient qualifying for [employer]. Arabella Bojorquez RN/Transfer Worker
--- NOTE | 2023-01-30 11:49 | PC.NURSE ---
Patient has been pleasant with care today, he is complaining of spasms in his legs bilaterally, Dr. Javed is aware of this, awaiting orders. He was given some vicodin for complaints of headache and then his lasix was just turned down to 5ml/hr. Zoll: [facility] here to talk to patient and per patient the talk went well. He is resting comfortably.
[2023-01-30] MEDS: FUROSEMIDE 100 MG in SODIUM CHLORIDE 0.9% 50 ML IV (17:46)
[2023-01-30] MEDS: SENNOSIDES 8.6 MG TABLET 17.2 MG PO (20:26)
[2023-01-31] VITALS (13 sets, daily range): BP systolic 103–119; BP diastolic 66–81; PULSE 102–109; RESP 16–19; TEMP 36.3–37.1; O2SAT 92–98
[2023-01-31] MEDS: FUROSEMIDE 100 MG in SODIUM CHLORIDE 0.9% 50 ML IV (04:55)
[2023-01-31] MEDS: HYDROCODONE/ACET 5/325 TABLET 1 TAB PO ×2 (04:55→21:02)
[2023-01-31] MEDS: ACETAMINOPHEN 325 MG TABLET 650 MG PO ×3 (04:56→17:03)
[2023-01-31 05:20] LABS: Add Manual Diff / Slide Review NO; Basophils Absolute Auto 100 /uL (0-100); Basophils Percent Auto 0.8 % (0-2); Eosinophils Absolute Auto 300 /uL (0-450); Eosinophils Percent Auto 1.8 % (2-4); Hematocrit 44.6 % (41-53); Hemoglobin 14.6 g/dL (13.5-17.5); Lymphocytes Absolute Auto 1800 /uL (1100-4500); Lymphocytes Percent Auto 12.3 % (25-40); Mean Corpuscular HGB Conc 32.8 % (30-36); Mean Corpuscular Hemoglobin 27.5 PG (26-34); Mean Corpuscular Volume 83.9 fL (80-100); Monocytes Absolute Auto 1300 /uL (0-900); Monocytes Percent Auto 9.1 % (3-14); Neutrophils Absolute Auto 11200 /uL (1500-7000); Platelet Count 508 X10^3/uL (150-400); Red Blood Cell Count 5.31 X10^6/uL (4.5-5.9); Red Cell Distribution Width 14.3 % (11.6-14.8); White Blood Cell Count 14.7 X10^3/uL (4.5-11.0)
[2023-01-31 05:31] LABS: BUN Creatinine Ratio 16.3 (6-22); Blood Urea Nitrogen 17 mg/dL (9-20); Calcium 9.8 mg/dL (8.4-10.2); Carbon Dioxide 35 mmol/L (22-32); Chloride 92 mmol/L (98-107); Estimated Glomerular Filt Rate > 60 mL/min (>60); Glucose 113 mg/dL (70-100); HEMOLYSIS < 15 (0-50); Potassium 3.8 mmol/L (3.4-5.1); Sodium 133 mmol/L (137-145)
[2023-01-31] MEDS: POTASSIUM CHLORIDE 20 MEQ TAB PO ×2 (08:40→17:03)
[2023-01-31] MEDS: SPIRONOLACTONE 25 MG TABLET PO (08:40)
[2023-01-31] MEDS: ENOXAPARIN 40 MG/0.4 ML SYRINGE SUBCUT (08:40)
[2023-01-31] MEDS: NICOTINE 14 PATCH 14 MG TOP (08:40)
[2023-01-31] MEDS: LOSARTAN 25 MG TABLET PO (08:41)
[2023-01-31] MEDS: SODIUM CHLORIDE 0.9% FLUSH 10 ML IV ×2 (08:41→21:02)
[2023-01-31] MEDS: METOPROLOL ER 25 MG TABLET PO (14:16)
--- NOTE | 2023-01-31 16:09 | CM.DPC ---
DCP Continued: ALUMNI COORDINATOR reviewed EMR. ALUMNI COORDINATOR received call from Pascual at [facility] ([place] [phone]). Need patient's policy number to get auth for [facility]. ALUMNI COORDINATOR faxed (fax [phone]) policy number. ALUMNI COORDINATOR spoke with patient bedside. Patient eager to d/c home. ALUMNI COORDINATOR provided patient with PCP information for health clinic on [address] and primary care on [place] that take his Medicaid. From Pascual later in afternoon, patient is seen in system as having coverage with Medicaid/[employer], however, account not active in system. Pascual placed an urgent request but wouldn't likely here back until this evening. Device code [id number]. They could also use an auth number from [employer] as well. ALUMNI COORDINATOR spoke with various different folks at [facility] to attempt to expedite active status in system and or obtain single auth for equipment. This ALUMNI COORDINATOR was led down multiple different incorrect paths by multiple different [employer] reps throughout the day. ALUMNI COORDINATOR coordinated often with Pascual from [facility], nursing staff, provider, patient, and patient's sister (Radha or home phone [phone]) throughout the day. Pascual reports they could do a fitting at patient's home if provider was okay with patient d/c home without it. Per provider, provider wants patient to d/c from here with [facility]. Sister Radha reports she plans to come to [place] the [place] tomorrow in order to transport patient home. Radha would like to be there for fitting of lifevest. Radha is adamant that she does not want her brother to d/c without [facility]. Plan: pending patient's [employer] being active in system and pending auth for [employer], patient will d/c home tomorrow with sister support. Transport via POV/ferry. CM team will continue to follow closely. SHELIA Garcia
[2023-01-31] MEDS: FUROSEMIDE 40 MG/4 ML VIAL IV (17:03)
--- NOTE | 2023-01-31 19:49 | PM.PN.1 ---
Subjective Subjective Interval history: He has no shortness of breath. He feels greatly improved. Exam Vital Signs (past 8 hours): - 01/31/23 12:00 01/31/23 13:00 01/31/23 14:16 Temperature 98.8 F Pulse Rate 107 H 107 H Respiratory Rate 16 Blood Pressure 112/71 112/71 Pulse Oximetry 92 92 Oxygen Delivery Method Room Air Oxygen Flow Rate 0 0 01/31/23 16:00 01/31/23 16:58 Temperature 98.4 F Pulse Rate 103 H Respiratory Rate 18 Blood Pressure 103/71 Pulse Oximetry 93 93 Oxygen Delivery Method Room Air Oxygen Flow Rate 0 0 Oxygen Delivery Method Room Air Oxygen Flow Rate 0 Narrative Exam Narrative: GEN: no acute distress CV: tachycardic, no murmurs PULM: clear bialaterally ABD: soft, nontender, nondistended EXT: compression stockings in place Objective Labs 01/31/23 05:01 01/31/23 05:01 Labs: Laboratory Results - last 24 hr 01/31/23 05:01 WBC 14.7 H RBC 5.31 Hgb 14.6 Hct 44.6 MCV 83.9 MCH 27.5 MCHC 32.8 RDW 14.3 Plt Count 508 H Neut % (Auto) 76.0 H Lymph % (Auto) 12.3 L [place] % (Auto) 9.1 Eos % (Auto) 1.8 L Baso % (Auto) 0.8 Neut # (Auto) 76563 H Lymph # (Auto) 1800 [place] # (Auto) 1300 H Eos # (Auto) 300 Baso # (Auto) 100 Sodium 133 L Potassium 3.8 Chloride 92 L Carbon Dioxide 35 H BUN 17 Creatinine 1.04 Estimated GFR > 60 BUN/Creatinine Ratio 16.3 Glucose 113 H Calcium 9.8 PFSH Social History Smoking Status: Current every day smoker alcohol intake: never Assessment & Plan Assessment and plan (1) Acute CHF (congestive heart failure): Qualifiers: Heart failure type: unspecified Qualified Code(s): I50.9 - Heart failure, unspecified Status: Acute Plan: dilated cardiomyopathy echo with EF 10-15%, mod-severely dilated LV, grade III diastolic dysfunction, mod-severe MR, mod TR, RVSP 54 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, 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
[2023-01-31] MEDS: SENNOSIDES 8.6 MG TABLET 17.2 MG PO (21:02)
[2023-02-01] MEDS: FUROSEMIDE 40 MG/4 ML VIAL IV (00:37)
[2023-02-01] MEDS: SODIUM CHLORIDE 0.9% FLUSH 10 ML IV ×2 (00:37→10:08)
[2023-02-01] MEDS: ACETAMINOPHEN 325 MG TABLET 650 MG PO ×3 (00:37→12:49)
[2023-02-01 01:00] VITALS: O2SAT 93
[2023-02-01 04:45] VITALS: BP 91/65; PULSE 106; RESP 18; TEMP 36.7; O2SAT 97
[2023-02-01 05:00] VITALS: O2SAT 97
[2023-02-01 05:19] LABS: Add Manual Diff / Slide Review NO; Basophils Absolute Auto 200 /uL (0-100); Basophils Percent Auto 1.4 % (0-2); Eosinophils Absolute Auto 200 /uL (0-450); Hematocrit 45.8 % (41-53); Hemoglobin 15.1 g/dL (13.5-17.5); Lymphocytes Absolute Auto 2300 /uL (1100-4500); Lymphocytes Percent Auto 15.8 % (25-40); Mean Corpuscular HGB Conc 33.1 % (30-36); Mean Corpuscular Hemoglobin 27.6 PG (26-34); Mean Corpuscular Volume 83.4 fL (80-100); Monocytes Absolute Auto 1400 /uL (0-900); Monocytes Percent Auto 9.6 % (3-14); Neutrophils Absolute Auto 10600 /uL (1500-7000); Neutrophils Percent Auto 72.2 % (50-75); Platelet Count 581 X10^3/uL (150-400); Red Blood Cell Count 5.48 X10^6/uL (4.5-5.9); Red Cell Distribution Width 14.9 % (11.6-14.8); White Blood Cell Count 14.7 X10^3/uL (4.5-11.0)
[2023-02-01] MEDS: HYDROCODONE/ACET 5/325 TABLET 1 TAB PO (05:33)
[2023-02-01 05:34] LABS: BUN Creatinine Ratio 22.7 (6-22); Blood Urea Nitrogen 29 mg/dL (9-20); Calcium 9.7 mg/dL (8.4-10.2); Carbon Dioxide 30 mmol/L (22-32); Chloride 94 mmol/L (98-107); Estimated Glomerular Filt Rate > 60 mL/min (>60); Glucose 175 mg/dL (70-100); HEMOLYSIS < 15 (0-50); Potassium 3.8 mmol/L (3.4-5.1); Sodium 133 mmol/L (137-145)
[2023-02-01 08:00] VITALS: BP 124/71; PULSE 104; RESP 18; TEMP 36.7; O2SAT 94
[2023-02-01] MEDS: ENOXAPARIN 40 MG/0.4 ML SYRINGE SUBCUT (10:06)
[2023-02-01] MEDS: NICOTINE 14 PATCH 14 MG TOP (10:07)
[2023-02-01] MEDS: FUROSEMIDE 40 MG TABLET 20 MG PO (10:07)
[2023-02-01] MEDS: SPIRONOLACTONE 25 MG TABLET PO (10:07)
[2023-02-01] MEDS: LOSARTAN 25 MG TABLET PO (10:07)
[2023-02-01] MEDS: METOPROLOL ER 25 MG TABLET PO (10:07)
[2023-02-01] MEDS: POTASSIUM CHLORIDE 20 MEQ TAB PO (10:07)
[2023-02-01 11:12] VITALS: O2SAT 94
[2023-02-01 11:34] VITALS: O2SAT 94
--- NOTE | 2023-02-01 12:12 | CM.DPC ---
DCP continued MAINTENANCE REPAIRER reviewed EMR From Pascual at [facility], able to get Medicaid/[place] auth for [facility]. Tech should be here today. MAINTENANCE REPAIRER spoke with sister Radha, on her way den[place]avdeep from [place]. Don delayed. MAINTENANCE REPAIRER spoke with Khushi from [employer], will be here around 1145. MAINTENANCE REPAIRER updated RN. MAINTENANCE REPAIRER completed priority boarding pass, no email back from state with pass. Patient reports no valid ID at this time, and per the [facility] website, a valid ID is needed for medical boarding pass. MAINTENANCE REPAIRER updated patient, patient in verbal agreement. Plan: patient to d/c home with sister today to [place], transport with [facility] and POV with [facility]. CM team will continue to follow as needed. SHELIA Garcia
--- NOTE | 2023-02-02 19:44 | PM.DS.1 ---
History of Present Illness History of Present Illness Date Patient Seen: 01/29/23 Time Patient Seen: 07:17 Chief complaint: swelling up both legs/high bp/sob Narrative: Per admitting physician: The pt is a 47 yo who rarely goes to see a medical provider who reports he has VIN but never has been fitted for a CPAP and has had edema in his legs for the past several years but never has sought medical attention either. He comes to the ER tonight due to worsening SOB and dypnea that has been steadily worsening over the past 2 weeks. He denies any CP, chest pressure, recent travel or immobility. 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 Discharge Providers Provider Date of admission: 01/29/23 05:52 Discharge Date: 02/01/23 Primary care physician: 1. Acute systolic CHF exacerbation 2. Sleep apnea 3. Anemia 4. Smoker Consults: Mr. Calderón was admitted with new diagnosis of CHF. He diuresed over 17L net negative. His symptoms greatly improved. He had an EF that was 10-15%. His urine meth was positive, which could explain his cardiomyopathy. He denied using meth. He was started on ARB, beta-elle, and spironolactone. He was discharged on oral lasix. He was encouraged to follow up with a PCP and also referred to cardiology. Discharge provider: Adrian Nathan MD Exam Vital Signs (past 8 hours): Oxygen Delivery Method Room Air Oxygen Flow Rate 0 Narrative Exam Narrative: GEN: no acute distress CV: tachycardic, no murmurs PULM: clear bialaterally ABD: soft, nontender, nondistended EXT: compression stockings in place Objective Labs 02/01/23 04:48 02/01/23 04:48 [facility] Social History Smoking Status: Current every day smoker alcohol intake: never Discharge Plan Discharge Plan Patient Disposition: Home Provider Discharge Comment: Mr. Calderón came in to the hospital with trouble breathing. He is newly found to have congestive heart failure. His ejection fraction is very low at 10-15%. He was placed with [facility]. He was started on multiple new medications to protect his heart. He should quit smoking. He should establish with a PCP for follow up. He should follow closely with cardiology as soon as possible. Discharge orders & Medications Prescriptions: New nicotine 14 mg/24 hr Patch 24 Hour 14 mg topical DAILY Qty: 30 0RF losartan 25 mg Tablet 25 mg PO DAILY Qty: 30 0RF metoprolol succinate 25 mg Tablet Extended Release 24 Hr 25 mg PO DAILY Qty: 30 0RF spironolactone 25 mg tablet 12.5 mg PO DAILY Qty: 30 0RF furosemide [Lasix] 20 mg tablet 20 mg PO DAILY Qty: 30 0RF Follow up/Referrals: [facility] Cardiology [Provider Group] - 1 Week (you will need to schedule this follow up appointment once you have established a primary care physcian and they have sent a referal to cardiology it is for : new diagnosis of CHF, EF 10-15%) Diet/Activity/Treatments Diet: Low-sodium Visit Report/Discharge Packet Stand Alone Forms: Patient Portal/API, Stroke Signs & Symptoms Quality VTE Deep Vein Thrombosis/Pulmonary Embolism Present on Admission: No
== END 2023-02-01 13:20 | disposition home or self-care (01) | DRG 194 ==
LOC: ED 02:20 → AC 05:58
PROVIDERS: Student in an Organized Health Care Education/Training Program; Admitting Provider Internal Medicine; Emergency Provider Emergency Medicine; Referring Provider Emergency Medicine; Visit Provider Internal Medicine
DX: I11.0 Hypertensive heart disease with heart failure (principal); I50.41 Acute combined systolic (congestive) and diastolic (congestive) heart failure; F17.210 Nicotine dependence, cigarettes, uncomplicated; G47.30 Sleep apnea, unspecified; I42.7 Cardiomyopathy due to drug and external agent; T43.625A Adverse effect of amphetamines, initial encounter
CPT/HCPCS: 0241U; 36415; 71045; 71275; 80048; 80053; 80061; 80305; 80320; 81003; 81015; 82550; 83605; 83690; 83735; 83880; 84145; 84443; 84484; 85025; 85379; 87040; 93005; 93010; 93306; 96374; 99285; G0378; J1650; J1940; Q9967

== ENCOUNTER 2023-02-06 18:44 | Emergency (ER) | payer OTHER, MEDICAID, SELFPAY ==
[2023-01-29 09:25] VITALS: BMI 38.5
[2023-02-06 18:49] VITALS: BP 140/94; PULSE 118; RESP 20; TEMP 37.1; O2SAT 98; BMI 36.6
--- NOTE | 2023-02-06 18:59 | DI.US.S_ITS ---
PROCEDURE: US PERIPH VENOUS LOW EXTREM LT INDICATIONS: LLE red/swelling/pain TECHNIQUE: Real-time imaging, as well as color and pulse Doppler interrogation, were performed of the lower extremity deep veins from the inguinal ligament to the popliteal fossa, with documentation of the visualized calf veins. COMPARISON: None. FINDINGS: The common femoral, femoral, popliteal, and the visualized calf veins are normally compressible, and free of intraluminal thrombus. Color and pulse Doppler demonstrate normal phasic intraluminal flow. There is normal augmentation response to distal compression maneuver. IMPRESSION: No findings of lower extremity deep venous thrombosis. Approved by: Marcos Gutierrez M.D. on 02/06/2023 at 20:07
[2023-02-06 20:18] VITALS: BP 137/88; PULSE 107; RESP 23; O2SAT 98
[2023-02-06 20:30] VITALS: BP 118/72; PULSE 104; RESP 22; O2SAT 98
--- NOTE | 2023-02-06 20:53 | ED_ITS ---
HPI - Extremity Problem General Chief complaint: Extremity Problem,Nontraumatic Stated complaint: Left leg pain HX of clots Time Seen by Provider: 02/06/23 20:10 Source: patient and family Mode of arrival: Wheelchair History of Present Illness HPI Narrative: Patient is a 47-year-old male. Has chronic issues with his heart. Is wearing a life vest. Has a history of CHF. Is here for evaluation of redness and swelling to the front portion of his left leg. He states that it actually started when he was in the hospital in his receiving medications to try to help get fluid off his legs in his lungs. He reports that the swelling is actually improving. He is not having any fevers or chest pain. He was concerned that maybe he had a blood clot in his leg. Redness is to the front portion of his left leg. Related Data Previous Rx's Medication Instructions Recorded furosemide 20 mg tablet (Lasix) 20 mg PO DAILY #30 tabs 02/01/23 losartan 25 mg tablet 25 mg PO DAILY #30 tabs 02/01/23 metoprolol succinate 25 mg 25 mg PO DAILY #30 tabs 02/01/23 tablet,extended release 24 hr nicotine 14 mg/24 hr daily 14 mg topical DAILY #30 ea 02/01/23 transdermal patch spironolactone 25 mg tablet 12.5 mg (1/2 x 25 mg) PO DAILY #30 02/01/23 tabs doxycycline hyclate 100 mg tablet 100 mg PO BID 7 days #14 tabs 02/06/23 Allergies Allergy/AdvReac Type Severity Reaction Status Date / Time No Known Drug Allergies Allergy Verified 04/27/21 09:21 Review of Systems Constitutional Constitutional: Reports system reviewed and no additional complaints, except as documented Cardiovascular Cardiovascular: Reports system reviewed and no additional complaints, except as documented Respiratory Respiratory: Reports system reviewed and no additional complaints, except as documented Gastrointestinal Gastrointestinal: Reports system reviewed and no additional complaints, except as documented Integumentary/Breasts Skin/Breast: Reports system reviewed and no additional complaints, except as documented Patient History Social History Smoking Status: Current every day smoker alcohol intake: never Smoking Status: Current every day smoker tobacco type: smokeless tobacco alcohol intake frequency: holidays/special occasions only Substance Use Type: marijuana Exam Initial Vital Signs Initial Vital Signs: Vital Signs Temperature 98.8 F 02/06/23 18:49 Pulse Rate 118 H 02/06/23 18:49 Respiratory Rate 20 02/06/23 18:49 Blood Pressure 140/94 H 02/06/23 18:49 Pulse Oximetry 98 02/06/23 18:49 Oxygen Delivery Method Room Air 02/06/23 18:49 HENMA Head: normal to inspection and normocephalic Skin Other: Patient has about a palm size area of erythema to the anterior portion of the left leg just distal to the knee. There are no vesicles. No pustules. Skin is recruiting intern this area. Does not extend proximal to the knee. Extrem Other: Patient is able to flex and extend the left knee. Discomfort is over the area of redness in the anterior portion of the knee. Procedures Abscess I/D I&D #1: Site: lower extremity Side (if applicable): left Local Anesthetic: lidocaine 1% and with epi Amount of anesthesia used (mL): 5 Technique: incised with #11 blade Irrigation: No Packing used?: none Course Orders Ordered: ED Orders 02/06/23 18:59 US periph venous low extrem lt Stat Discontinued Medications Doxycycline Hyclate (Doxycycline Hyclate 100 Mg Tablet) 100 mg PO NOW ONE Stop: 02/06/23 21:24 Last Admin: 02/06/23 21:31 Dose: 100 mg Documented By: TIFFANI Lidocaine/Epinephrine (Lidocaine 2% W/Epi Inj) 20 ml INJ INTRA-OP ONE Stop: 02/06/23 20:55 Last Admin: 02/06/23 21:15 Dose: 20 ml Documented By: TIFFANI Vital Signs Vital signs: Vital Signs - 8 hr 02/06/23 20:18 02/06/23 20:18 02/06/23 20:30 Temperature Pulse Rate 107 H Respiratory Rate 23 Blood Pressure 137/88 118/72 Pulse Oximetry 98 Oxygen Delivery Method 02/06/23 20:30 02/06/23 21:00 02/06/23 21:00 Temperature Pulse Rate 104 H 107 H Respiratory Rate 22 20 Blood Pressure 123/75 Pulse Oximetry 98 99 Oxygen Delivery Method 02/06/23 21:30 02/06/23 21:33 Temperature 98.4 F Pulse Rate 106 H 102 H Respiratory Rate 20 20 Blood Pressure 133/88 Pulse Oximetry 97 Oxygen Delivery Method Room Air MDM - Extremity (Nontraumatic) Imaging Data US - DVT: Radiologist's Impression: PROCEDURE: US PERIPH VENOUS LOW EXTREM LT INDICATIONS: LLE red/swelling/pain TECHNIQUE: Real-time imaging, as well as color and pulse Doppler interrogation, were performed of the lower extremity deep veins from the inguinal ligament to the popliteal fossa, with documentation of the visualized calf veins. COMPARISON: None. FINDINGS: The common femoral, femoral, popliteal, and the visualized calf veins are normally compressible, and free of intraluminal thrombus. Color and pulse Doppler demonstrate normal phasic intraluminal flow. There is normal augmentation response to distal compression maneuver. IMPRESSION: No findings of lower extremity deep venous thrombosis. [facility] Narrative Medical decision making narrative: The ultrasound was ordered in triage prior to my evaluation. He does not have a DVT. He is an area of cellulitis on the anterior portion of his left leg distal to his knee. I have low suspicion for septic joint based on his presentation. Bedside ultrasound does show a small abscess in the area. Discussed the risks and benefits of incision and drainage and after this discussion we opted to attempt drainage. There was a significant amount of purulent material result. I suspect that his symptoms will improve just with the drainage however given th e amount of cellulitis will start him on antibiotics. Was given a dose here in the ER prescription was sent to the pharmacy of his choice. No indication for admission to the hospital on IV antibiotics. He was given return precautions. He expressed understanding and agreement. Discharge Plan Departure Patient Disposition: Home Clinical Impression: Abscess, Abscess or cellulitis of knee Instructions: DI for Cellulitis -- Adult Activity Restrictions/Additional Instructions: I would expect drainage from the wound over the next couple days. You just need to change the bandage as needed. You can shower like normal. Take the antibiotics as directed. Return to the emergency department for new symptoms. Prescriptions: New doxycycline hyclate 100 mg tablet 100 mg PO BID 7 Days Qty: 14 0RF No Action nicotine 14 mg/24 hr Patch 24 Hour 14 mg topical DAILY Qty: 30 0RF losartan 25 mg Tablet 25 mg PO DAILY Qty: 30 0RF metoprolol succinate 25 mg Tablet Extended Release 24 Hr 25 mg PO DAILY Qty: 30 0RF spironolactone 25 mg tablet 12.5 mg PO DAILY Qty: 30 0RF furosemide [Lasix] 20 mg tablet 20 mg PO DAILY Qty: 30 0RF Stand Alone Forms: Patient Portal/API
[2023-02-06 21:00] VITALS: BP 123/75; PULSE 107; RESP 20; O2SAT 99
[2023-02-06] MEDS: LIDOCAINE 2% W/EPI INJ 20 ML INJ (21:15)
[2023-02-06 21:30] VITALS: PULSE 106; RESP 20
[2023-02-06] MEDS: DOXYCYCLINE HYCLATE 100 MG TABLET PO (21:31)
[2023-02-06 21:33] VITALS: BP 133/88; PULSE 102; RESP 20; TEMP 36.9; O2SAT 97
== END 2023-02-06 21:44 | disposition home or self-care (01) ==
PROVIDERS: Emergency Provider Emergency Medicine
DX: L02.416 Cutaneous abscess of left lower limb (principal); L03.116 Cellulitis of left lower limb
CPT/HCPCS: 10060; 93971; 99283; 99284

== ENCOUNTER 2023-03-03 21:39 | Emergency (ER) | payer OTHER, MEDICAID, SELFPAY ==
[2023-01-29 09:25] VITALS: BMI 38.5
[2023-03-03 21:44] VITALS: BP 120/76; PULSE 79; RESP 16; TEMP 36.8; O2SAT 98; BMI 36.6
--- NOTE | 2023-03-03 22:02 | DI.RAD.S_ITS ---
PROCEDURE: XR CHEST 1V INDICATIONS: chest pain TECHNIQUE: One view of the chest was acquired. COMPARISON: [facility], CR, XR CHEST 1V, 01/29/2023, 2:33. FINDINGS: Surgical changes and devices: Left clavicular ORIF. Lungs and pleura: Mild appearance of increased interstitial prominence. Mediastinum: Mediastinal contours appear normal. Heart size is mildly prominent. Bones and chest wall: No suspicious bony lesions. Overlying soft tissues appear unremarkable. IMPRESSION: Mild appearance of increased interstitial prominence suggestive of edema. Dictated by: Aye Osborne M.D. on 03/03/2023 at 22:43 Approved by: Aye Osborne M.D. on 03/03/2023 at 22:44
[2023-03-03 22:17] LABS: Prothrombin Time 11.3 SECONDS (9.4-12.5)
[2023-03-03 22:19] LABS: Add Manual Diff / Slide Review NO; Basophils Absolute Auto 100 /uL (0-100); Basophils Percent Auto 0.5 % (0-2); Eosinophils Absolute Auto 300 /uL (0-450); Eosinophils Percent Auto 2.7 % (2-4); Hematocrit 36.1 % (41-53); Hemoglobin 11.9 g/dL (13.5-17.5); Lymphocytes Absolute Auto 2400 /uL (1100-4500); Mean Corpuscular HGB Conc 32.9 % (30-36); Mean Corpuscular Hemoglobin 27.2 PG (26-34); Mean Corpuscular Volume 82.7 fL (80-100); Monocytes Absolute Auto 1300 /uL (0-900); Monocytes Percent Auto 13.2 % (3-14); Neutrophils Absolute Auto 5600 /uL (1500-7000); Neutrophils Percent Auto 58.6 % (50-75); PTT Partial Thromboplastin Tim 29 SECONDS (25.1-36.5); Platelet Count 237 X10^3/uL (150-400); Red Blood Cell Count 4.37 X10^6/uL (4.5-5.9); Red Cell Distribution Width 15.2 % (11.6-14.8); White Blood Cell Count 9.6 X10^3/uL (4.5-11.0)
[2023-03-03 22:23] LABS: Alanine Aminotransferase 19 IU/L (<50); Albumin 3.8 g/dL (3.5-5.0); Albumin Globulin Ratio 1.3 (1.0-2.8); Alkaline Phosphatase 58 U/L (38-126); Aspartate Aminotransferase 24 IU/L (17-59); BUN Creatinine Ratio 17.6 (6-22); Bilirubin Total 0.7 mg/dL (0.2-1.3); Blood Urea Nitrogen 15 mg/dL (9-20); Calcium 8.8 mg/dL (8.4-10.2); Carbon Dioxide 25 mmol/L (22-32); Chloride 104 mmol/L (98-107); Creatine Kinase 105 U/L (55-170); Estimated Glomerular Filt Rate > 60 mL/min (>60); Globulin 2.9 g/dL (1.7-4.1); Glucose 90 mg/dL (70-100); HEMOLYSIS < 15 (0-50); Lipase 61 U/L (23-300); Magnesium 1.7 mg/dL (1.6-2.3); Potassium 3.8 mmol/L (3.4-5.1); Sodium 136 mmol/L (137-145); Total Protein 6.7 g/dL (6.3-8.2)
[2023-03-03 22:31] LABS: NT-proBNP (BNP-Adult 18+) 2530 pg/mL (<125)
[2023-03-03 22:34] LABS: Troponin I < 0.012 ng/mL (0.01-0.034)
[2023-03-03 23:20] VITALS: PULSE 92; RESP 23; O2SAT 98
[2023-03-03 23:21] VITALS: BP 116/67; PULSE 94; RESP 26; O2SAT 96
[2023-03-03 23:30] VITALS: BP 109/60; PULSE 85; RESP 22; O2SAT 92
[2023-03-04] VITALS (9 sets, daily range): BP systolic 110–139; BP diastolic 60–93; PULSE 87–93; RESP 12–21; O2SAT 86–98
[2023-03-04] MEDS: FUROSEMIDE 40 MG/4 ML VIAL IV (01:58)
--- NOTE | 2023-03-04 02:00 | ED_ITS ---
HPI - Arrhythmia/Palpitations General Chief Complaint: Arrhythmia/Palpitations Stated Complaint: sob/erratic heartbeat/edema of both legs Time Seen by Provider: 03/03/23 22:17 Source: patient and family Mode of arrival: Wheelchair History of Present Illness HPI narrative: 47-year-old man with a history of heart failure with an ejection fraction of 10- 15%, valvular disease and methamphetamine abuse presenting with shortness of breath and palpitations. Patient said that he is had these for a couple of days. In his chest feels a bit tight. He does not believe that he has been gaining weight. Says he is not used any meth and has a primary care doctor established on [place]. He was admitted here in January of this year for new onset heart failure. Echocardiogram at that time showed an LV ejection fraction of 10-15% as well as moderate to severe mitral regurg and also has tricuspid regurgitation. I also reviewed the discharge summary from that visit. Related Data Previous Rx's Medication Instructions Recorded furosemide 20 mg tablet (Lasix) 20 mg PO DAILY #30 tabs 02/01/23 losartan 25 mg tablet 25 mg PO DAILY #30 tabs 02/01/23 metoprolol succinate 25 mg 25 mg PO DAILY #30 tabs 02/01/23 tablet,extended release 24 hr nicotine 14 mg/24 hr daily 14 mg topical DAILY #30 ea 02/01/23 transdermal patch spironolactone 25 mg tablet 12.5 mg (1/2 x 25 mg) PO DAILY #30 02/01/23 tabs Allergies Allergy/AdvReac Type Severity Reaction Status Date / Time No Known Drug Allergies Allergy Verified 04/27/21 09:21 Patient History Social History Smoking Status: Current every day smoker alcohol intake: never Smoking Status: Current every day smoker tobacco type: smokeless tobacco alcohol intake frequency: holidays/special occasions only Substance Use Type: marijuana Exam Initial Vital Signs Initial Vital Signs: Vital Signs Temperature 98.3 F 03/03/23 21:44 Pulse Rate 79 03/03/23 21:44 Respiratory Rate 16 03/03/23 21:44 Blood Pressure 120/76 03/03/23 21:44 Pulse Oximetry 98 03/03/23 21:44 Oxygen Delivery Method Room Air 03/03/23 21:44 Const General: No acute distress HENMT Head: normocephalic and atraumatic Neck Other: Neck is supple jugular venous distention is present Resp Effort & Inspection: normal respiratory effort, able to speak in complete sentences and no respiratory distress Other: Scattered rales at both bases Cardio Rate: regular rate Rhythm: regular rhythm Heart Sounds: S1 normal, S2 normal and no gallops Skin General: dry skin and warm Neuro General: patient alert, patient oriented x3 and moves all extremities Course Course Course Narrative: Patient was given 40 mg of Lasix IV, had a brisk diuresis. He is feeling better following this Orders Ordered: ED Orders 03/03/23 21:55 BNP [NT-proBNP (BNP-Adult 18+)] Stat Complete Blood Count AUTO DIFF Stat Comprehensive Metabolic Panel Stat Lipase Stat Magnesium Stat PTT Partial Thromboplastin [place] Stat Prothrombin Time INR Stat Troponin & CK Cardiac Panel Stat 03/03/23 22:02 XR chest 1V Stat EKG-12 Lead Stat Discontinued Medications Furosemide (Furosemide 40 Mg/4 Ml Vial) 40 mg IV NOW ONE Stop: 03/04/23 01:53 Last Admin: 03/04/23 01:58 Dose: 40 mg Documented By: STIVEN Reevaluation(s) Reevaluation #1: Re-evaluated post furosemide with improvement in symptoms, Vital Signs Vital signs: Vital Signs - 8 hr 03/03/23 23:20 03/03/23 23:21 03/03/23 23:21 Pulse Rate 92 H 94 H Respiratory Rate 23 26 H Blood Pressure 116/67 Pulse Oximetry 98 96 03/03/23 23:30 03/03/23 23:30 03/04/23 00:00 Pulse Rate 85 Respiratory Rate 22 Blood Pressure 109/60 114/80 Pulse Oximetry 92 03/04/23 00:00 03/04/23 00:30 03/04/23 00:30 Pulse Rate 91 H 91 H Respiratory Rate 18 21 Blood Pressure 120/71 Pulse Oximetry 86 L 03/04/23 01:00 03/04/23 01:00 03/04/23 01:30 Pulse Rate 89 Respiratory Rate 17 Blood Pressure 116/60 110/88 Pulse Oximetry 03/04/23 01:30 03/04/23 02:00 03/04/23 02:30 Pulse Rate 92 H 90 93 H Respiratory Rate 17 18 12 Blood Pressure Pulse Oximetry 98 03/04/23 02:30 03/04/23 03:00 03/04/23 03:00 Pulse Rate 87 Respiratory Rate 16 Blood Pressure 129/75 139/68 Pulse Oximetry 97 91 03/04/23 03:30 03/04/23 03:30 03/04/23 04:00 Pulse Rate 91 H Respiratory Rate 18 Blood Pressure 135/93 H 122/71 Pulse Oximetry 95 03/04/23 04:00 Pulse Rate 92 H Respiratory Rate 18 Blood Pressure Pulse Oximetry 87 L MDM - Arrhythmia/Palpitations Lab Data Lab results narrative: CBC and CMP are unremarkable, proBNP is elevated at 2350 there is no baseline. Troponin normal lipase is normal 03/03/23 21:55 03/03/23 21:55 Labs: Lab Results 03/03/23 Range/Units 21:55 WBC 9.6 (4.5-11.0) X10^3/uL RBC 4.37 L (4.5-5.9) X10^6/uL Hgb 11.9 L (13.5-17.5) g/dL Hct 36.1 L (41-53) % MCV 82.7 (80-100) fL MCH 27.2 (26-34) PG MCHC 32.9 (30-36) % RDW 15.2 H (11.6-14.8) % Plt Count 237 (150-400) X10^3/uL Neut % (Auto) 58.6 (50-75) % Lymph % (Auto) 25.0 (25-40) % [place] % (Auto) 13.2 (3-14) % Eos % (Auto) 2.7 (2-4) % Baso % (Auto) 0.5 (0-2) % Neut # (Auto) 5600 (0635-9976) /uL Lymph # (Auto) 2400 (8131-7070) /uL [place] # (Auto) 1300 H (0-900) /uL Eos # (Auto) 300 (0-450) /uL Baso # (Auto) 100 (0-100) /uL PT 11.3 (9.4-12.5) SECONDS INR 1.0 (0.9-1.3) APTT 29 (25.1-36.5) SECONDS Sodium 136 L (137-145) mmol/L Potassium 3.8 (3.4-5.1) mmol/L Chloride 104 (98-107) mmol/L Carbon Dioxide 25 (22-32) mmol/L BUN 15 (9-20) mg/dL Creatinine 0.85 (0.66-1.25) mg/dL Estimated GFR > 60 (>60) mL/min BUN/Creatinine Ratio 17.6 (6-22) Glucose 90 (70-100) mg/dL Calcium 8.8 (8.4-10.2) mg/dL Magnesium 1.7 (1.6-2.3) mg/dL Total Bilirubin 0.7 (0.2-1.3) mg/dL AST 24 (17-59) IU/L ALT 19 (<50) IU/L Alkaline Phosphatase 58 (38-126) U/L Total Creatine Kinase 105 (55-170) U/L Troponin I < 0.012 (0.01-0.034) ng/mL NT-Pro-B Natriuret Pep 2530 H (<125) pg/mL Total Protein 6.7 (6.3-8.2) g/dL Albumin 3.8 (3.5-5.0) g/dL Globulin 2.9 (1.7-4.1) g/dL Albumin/Globulin Ratio 1.3 (1.0-2.8) Lipase 61 (23-300) U/L Imaging Data Chest x-ray: My Impression: Portable chest x-ray shows increased interstitial markings Radiologist's Impresson: IMPRESSION: Mild appearance of increased interstitial prominence suggestive of edema. Dictated by: Aye Osborne M.D. on 03/03/2023 at 22:43 Approved by: Aye Osborne M.D. on 03/03/2023 at 22:44 ECG Data Interpretation: EKG shows sinus rhythm, left bundle-branch block no acute ST segment changes MDM Narrative Medical decision making narrative: 47-year-old man with a history of heart failure and decreased ejection fraction. He is having some shortness of breath and chest tightness. Troponin is normal in spite of prolonged symptoms. Chest x-ray does not suggest pulmonary edema, he is not hypoxic and he is not excessively hypertensive. I considered pulmonary embolism, this seems much less likely than heart failure at present. He was given furosemide with good results. I will increase his furosemide x2 days and then returning to baseline, I recommended that he avoid salt in his diet and follow up with his primary care provider soon. Discharge Plan Departure Patient Disposition: Home Clinical Impression: Acute CHF (congestive heart failure) Qualifiers: Heart failure type: combined systolic and diastolic Qualified Code(s): I50.41 - Acute combined systolic (congestive) and diastolic (congestive) heart failure Activity Restrictions/Additional Instructions: Workup tonight is reassuring, I think you can be discharged home at this point. I do want she would a double up on your furosemide to 40 mg a day for 2 days. Continue your other previous home medications. Follow up soon with your primary care provider. Make sure that you are watching your salt intake, this can make your heart failure worse. If you are having increasing shortness of breath chest pain or other acute symptoms recheck in the emergency department. Prescriptions: No Action nicotine 14 mg/24 hr Patch 24 Hour 14 mg topical DAILY Qty: 30 0RF losartan 25 mg Tablet 25 mg PO DAILY Qty: 30 0RF metoprolol succinate 25 mg Tablet Extended Release 24 Hr 25 mg PO DAILY Qty: 30 0RF spironolactone 25 mg tablet 12.5 mg PO DAILY Qty: 30 0RF furosemide [Lasix] 20 mg tablet 20 mg PO DAILY Qty: 30 0RF Stand Alone Forms: Patient Portal/API
== END 2023-03-04 04:40 | disposition home or self-care (01) ==
PROVIDERS: Emergency Provider Emergency Medicine
DX: I50.41 Acute combined systolic (congestive) and diastolic (congestive) heart failure (principal); R06.02 Shortness of breath; R07.9 Chest pain, unspecified; Z79.01 Long term (current) use of anticoagulants
CPT/HCPCS: 36415; 71045; 80053; 82550; 83690; 83735; 83880; 84484; 85025; 85610; 85730; 93005; 93010; 96374; 99284; J1940